=== PATIENT | male | born 1945 | race Caucasian/White ===

== ENCOUNTER → 2023-10-23 13:28 | Outpatient (REF) | payer OTHER, SELFPAY | LOC: HWRAD 13:28 | PROVIDERS: ATTENDING PHYSICIAN Family Medicine | DX: R06.09 Other forms of dyspnea (principal) | CPT/HCPCS: 71046 ==

== ENCOUNTER → 2024-04-17 12:36 | Outpatient (REF) | payer OTHER, SELFPAY | LOC: HWRCS 12:36 | PROVIDERS: ATTENDING PHYSICIAN Internal Medicine; FAMILY PHYSICIAN Family Medicine | DX: I34.0 Nonrheumatic mitral (valve) insufficiency (principal); I50.32 Chronic diastolic (congestive) heart failure; I34.1 Nonrheumatic mitral (valve) prolapse; I36.1 Nonrheumatic tricuspid (valve) insufficiency | CPT/HCPCS: 93306 ==

== ENCOUNTER → 2024-12-13 11:09 | Outpatient (REF) | payer OTHER, SELFPAY | LOC: HWRCS 11:09 | PROVIDERS: ATTENDING PHYSICIAN Internal Medicine; FAMILY PHYSICIAN Family Medicine | DX: I50.32 Chronic diastolic (congestive) heart failure (principal); I34.0 Nonrheumatic mitral (valve) insufficiency; I34.1 Nonrheumatic mitral (valve) prolapse; I36.1 Nonrheumatic tricuspid (valve) insufficiency; I48.19 Other persistent atrial fibrillation | CPT/HCPCS: 93306 ==

== ENCOUNTER 2025-01-16 13:03 | Emergency (ER) | payer OTHER, SELFPAY ==
[2025-01-16 13:14] VITALS: BP 96/65
[2025-01-16 13:40] LABS: % Basophils 0.9 % (0-2); % Eosinophils 4.4 % (0-6); % Immature Granulocytes 0.3 % (0-0.5); % Lymphocytes 3.8 % (20.5-51.1); % Monocytes 7.7 % (1.7-9.3); % Neutrophils 82.9 % (42.2-75.2); Absolute Basophils 0.1 10^3/uL (0-0.2); Absolute Eosinophils 0.3 10^3/uL (0-0.7); Absolute Lymphocytes 0.3 10^3/uL (1.2-3.4); Absolute Monocytes 0.6 10^3/uL (0.1-0.6); Absolute Neutrophils 6.3 10^3/uL (1.4-6.5); Hematocrit 42.6 % (39.0-52.0); Hemoglobin 15.1 g/dL (13.0-18.0); Mean Corp Hgb Conc. 35.4 g/dL (33.0-37.0); Mean Corpuscular Volume 101.7 fL (80.0-94.0); Mean Platelet Volume 12.3 fL (7.4-10.4); Nucleated Red Blood Cells % 0 % (-); Platelet Count 91 10^3/uL (130-400); Red Blood Cell Count 4.19 10^6/uL (4.70-6.10); Red Cell Dist. Width 13.8 % (11.5-14.5); White Blood Cell Count 7.6 10^3/uL (4.8-10.8)
[2025-01-16 13:58] LABS: Troponin I < 0.012 ng/ml
[2025-01-16 14:29] LABS: ALT (SGPT) 29 U/L (0-50); AST (SGOT) 32 U/L (17-59); Albumin 3.9 g/dl (3.5-5.0); Alkaline Phosphatase 94 U/L (38-126); Blood Urea Nitrogen 20 mg/dl (9-20); Calcium 8.7 mg/dl (8.4-10.2); Carbon Dioxide 31 mmol/L (22-30); Chloride 96 mmol/L (98-107); Glucose 150 mg/dl (70-99); Potassium 3.2 mmol/L (3.5-5.1); Sodium 137 mmol/L (135-145); Total Bilirubin 1.9 mg/dl (0.2-1.3); Total Protein 6.1 g/dl (6.3-8.2); eGFR > 60.00
[2025-01-16 15:46] VITALS: BP 144/102
[2025-01-16 15:47] VITALS: BMI 20.4
[2025-01-16 16:00] VITALS: BP 166/148
[2025-01-16] MEDS: TOPROL XL 25 MG PO (16:41)
[2025-01-16 16:43] VITALS: BP 91/76
[2025-01-16 16:45] VITALS: BP 112/88
[2025-01-16] MEDS: KCL 40 MEQ PO (16:46)
--- NOTE | 2025-01-16 16:50 | ED.GENMED ---
History of Present Illness
General
Chief Complaint: Dizziness
Source: patient and spouse
Time Seen by Provider: 01/16/25 15:51
History of Present Illness
History of Present Illness:
79-year-old male presenting to the emergency department at the request of primary care provider after he got up from bed this morning and went downstairs to make a cup of coffee and while drinking his coffee got up from his chair which caused him to
get a little bit lightheaded/dizzy, fell to the ground striking the frontal scalp onto a rug, primary care recommended patient come to the ER due to being on Eliquis and having a head strike. Patient states that at times he does get
lightheaded/dizzy when going from sitting to standing position so he knows to get up relatively slowly. At present time patient is without any concerns including headache, visual changes, focal weakness or numbness, chest pain or shortness of
breath. Spouse does note that patient recently had his Lexapro increased from 5 mg to 7 and half milligrams then 10 mg over the last 2 months and believes this could be playing a role. She also believes that his Lasix is likely causing a little
bit lower blood pressure than usual. Patient notes he did not take his metoprolol this morning as he was sent to the emergency department, notes a history of atrial fibrillation and despite his current mildly tachycardic rate has no symptoms from
this.
Past History
Past History
ED Past Medical History: Arrthythmia, Cancer, HTN, Hypercholesterolemia, Other (Multiple myeloma receiving treatment monthly) and Other (Mitral valve prolapse with mitral regurg)
ED Past Surgical History: Other (Right hernia repair, cataract surgery, retinal tear repair, status post cholecystectomy)
Social History
Tobacco: Non-smoker
Alcohol: None
Drug: None
Personal:
Living: with family
Employment: Employed
Review of Systems
Review of Systems
All Other Systems: ROS reviewed and negative except as documented in HPI and ROS
Phy Exam
Physical Exam
Physical Exam:
GENERAL: Alert , in no apparent distress
HEAD: abrasion right frontal scalp
EYE: clear conjunctiva
NECK: Supple
ENT: o/p clr, mmm.
CARDIAC: Irregularly irregular, tachycardic rate between 105-121bpm
LUNGS: Clear breath sounds bilaterally, no acute respiratory distress
ABDOMEN: Soft, without focal tenderness, no r/g, no cvat
NEUROLOGICAL: Alert and oriented
SKIN: Warm and dry, skin intact.
MUSCULOSKELETAL: No edema, well perfused.
PSYCH: Normal and appropriate interaction.
Scores
Heart Failure Risk
Heart Failure Risk Score: Not Applicable
Heart Score for Chest Pain Patients
STEMI patient?: Not applicable
Withdrawal Assessment of Alcohol
Withdrawal Assessment Completed?: Not applicable
Course
Orders/Labs/Results
Orders:
Orders
01/16/25 13:16
CT Head W/o Iv Contrast Urgent
Comment:
Reason For Exam: fell hit head, on bld thinner
01/16/25 13:18
Electrocardiogram (*1) Urgent
Reason for Study: Vertigo / Dizzy
EKG- Treatment ONCE
01/16/25 13:22
Complete Blood Count/With Diff Urgent
Comprehensive Metabolic Panel Urgent
Troponin I Urgent
01/16/25 15:51
CT Cervical Spine W/o Iv Contr Urgent
Comment:
Reason For Exam: cervical neck tenderness
01/16/25 16:10
Metoprolol Xl [Toprol Xl] 25 mg PO NOW STA
Potassium Chloride [KCl] 40 meq PO NOW STA
Abnormal Lab Results
01/16/25
13:22
RBC 4.19 L 10^6/uL
(4.70-6.10)
MCV 101.7 H fL
(80.0-94.0)
MCH 36.0 H pg
(27.0-31.0)
Plt Count 91 L 10^3/uL
(130-400)
MPV 12.3 H fL
(7.4-10.4)
Absolute Lymphs (auto) 0.3 L 10^3/uL
(1.2-3.4)
Neutrophils % 82.9 H %
(42.2-75.2)
Lymphocytes % 3.8 L %
(20.5-51.1)
Potassium 3.2 L mmol/L
(3.5-5.1)
Chloride 96 L mmol/L
(98-107)
Carbon Dioxide 31 H mmol/L
(22-30)
Glucose 150 H mg/dl
(70-99)
Total Bilirubin 1.9 H mg/dl
(0.2-1.3)
Total Protein 6.1 L g/dl
(6.3-8.2)
01/16/25 13:22
01/16/25 13:22
Vital Signs
Initial and Last Documented VS:
Initial Vital Signs
Temp Pulse Resp BP Pulse Ox
98.3 F 69 18 96/65 96
01/16/25 13:14 01/16/25 13:14 01/16/25 13:14 01/16/25 13:14 01/16/25 13:14
Last Documented Vital Signs
Temp Pulse Resp BP Pulse Ox
98.3 F 95 19 95/59 97
01/16/25 13:14 01/16/25 17:45 01/16/25 17:45 01/16/25 17:00 01/16/25 16:45
MDM/Problems Addressed
Differential Diagnosis Includes:
Orthostasis, polypharmacy, vagal event, electrolyte derangement, dehydration, cardiac arrhythmia
MDM/Problems Addressed:
79-year-old male presenting the emergency department request of his primary care provider due to head strike accidentally falling to the ground during what appears to be an orthostatic episode. Patient otherwise asymptomatic here. Small right
forehead contusion noted. CT of the head and cervical spine ordered. Labs were initiated in triage which show mild hypokalemia which is likely from patient's Lasix use. Will orally replete this. He did not take his metoprolol today and is in a
somewhat tachycardic rate so we will treat with his usual 25 mg p.o. here. Anticipate discharge home with continued outpatient workup. I do suspect there is a degree of polypharmacy especially when it comes to patient's blood pressure.
Chronic conditions affecting care: Arrhythmia
Acute Exacerbation and/or Progression of Chronic Illness: Arrhythmia
*Radiology
Radiology exam reviewed: radiology read reviewed
*Pulse Oximetry
Patient hypoxic: no
*EKG
Heart Rate: 113
Rate: tachycardiac
Rhythm: a-fib
[place]: left axis deviation
Ischemia: no ischemia
*Disaster Response Director Interpretation
Rate: tachycardiac
Rhythm: a-fib
*Critical Care Note
Total Time (30-74mins, 75-104mins- exclusive of procedures): Not Applicable
Data Reviewed
Review of Other/Old Records Reveals: Labs
Patient Management
Escalation/DeEscalation of care consider admission/obs:
Patient continues to feel well and requesting to be discharged home. I advised them that I do not have the cervical spine CT read back yet but they are still requesting to be discharged home. On my review I do not see any cervical spine fractures
however there is a degenerative changes noted. I advised the patient and that if there is anything severely abnormal that will require patient to come back to the hospital but I do have them but otherwise he should follow-up with his primary
care provider.
ED Attending Note
-
Portions of this chart may have been created with voice recognition software.� Occasional wrong word or��sound alike� substitutions may have occurred due to the inherent limitations of voice recognition software.
Discharge Plan
Departure
Patient Disposition: Home (Routine Discharge)
Date of Disposition: 01/16/25
Time of Disposition: 17:55
Patient with high blood pressure during this ER visit?: No
Discharge Problem:
Orthostasis, Atrial fibrillation, Abrasion of forehead
Instructions: Dizziness, Nonvertigo, (DC)
Prescriptions:
No Action
lutein 20 MG capsule
20 mg PO DAILY
ascorbic acid (vitamin C) [Vitamin C] 500 MG tablet
1,000 mg PO DAILY
aspirin 81 MG tablet,delayed release (DR/EC)
81 mg PO DAILY
bisacodyl 5 MG tablet,delayed release (DR/EC)
5 mg PO DAILYPRN PRN (Reason: constipation )
cholecalciferol (vitamin D3) 1,000 UNITS tablet
1,000 units PO DAILY
multivitamin with folic acid [Tab-A-Nic] 1 TABLET tablet
1 tab PO DAILY
polyethylene glycol 3350 17 GRAMS powder in packet
17 grams PO DAILYPRN PRN (Reason: constipation) Qty: 0 0RF
metoprolol succinate 50 MG tablet extended release 24 hr
50 mg PO BID
acyclovir [Zovirax] 400 MG tablet
400 mg PO BID
calcium carbonate 600 MG tablet
1,200 mg PO DAILY
ibuprofen 200 MG tablet
200 mg PO DAILYPRN PRN (Reason: mild pain)
pyridoxine (vitamin B6) 50 MG tablet
50 mg PO DAILY
gabapentin 300 MG capsule
600 mg PO TIDPRN PRN (Reason: numbness)
vitamin B complex [Neurodep] 1 CAP capsule
1 cap PO DAILY
lenalidomide [Revlimid] 25 MG capsule
25 mg PO . HS DIRECTED
Patient Comments:
07/04/2020: Pt takes 14 days on and 7 days off, tonight would be last dose PT'S FAMILY WILL BRING IN FOR PT
denosumab [Xgeva] 120 MG/1.7 ML solution
120 mg SC MONTHLY
selenium 200 MCG capsule
200 mcg PO DAILY
Menaparacasei,B.animalis 1 EACH capsule
1 ea PO DAILY
daratumumab [Darzalex] 100 MG/5 ML solution
100 mg IV . DIRECTED
Patient Comments:
07/04/2020: pt unsure, per ecw from Dr Isaac, pt recieves from Dr Truong
cephalexin 500 MG capsule
500 mg PO QID Qty: 40 0RF
Referrals:
Karlo Isaac MD [Family Provider] -
Interventions
Interventions:
*Risk Screen - Suicide Last Done: 01/16/25 13:14
*General Assessment Last Done: 01/16/25 13:14
*Neglect/Abuse Screening Last Done: 01/16/25 13:14
*ED- Fall Risk Assessment Last Done: 01/16/25 15:48
*ED COVID-19 Vaccine History Last Done: 01/16/25 15:48
*Nursing Disposition Last Done: 01/16/25 18:00
ED-Musculoskeletal Assessment Last Done: 01/16/25 15:50
ED- Neurological Assessment Last Done: 01/16/25 16:03
Discharge Date and Time
Discharge Date/Time: 01/16/25 18:00
Print Language: LATVIAN
[2025-01-16 17:00] VITALS: BP 95/59
== END 2025-01-16 18:00 | disposition home or self-care (01) ==
LOC: EMR 13:03
PROVIDERS: Emergency Medicine; EMERGENCY PHYSICIAN Emergency Medicine; FAMILY PHYSICIAN Family Medicine
DX: S00.81XA Abrasion of other part of head, initial encounter (principal); S00.83XA Contusion of other part of head, initial encounter; W06.XXXA Fall from bed, initial encounter; I10 Essential (primary) hypertension; E78.00 Pure hypercholesterolemia, unspecified; C90.00 Multiple myeloma not having achieved remission; I34.1 Nonrheumatic mitral (valve) prolapse; I48.91 Unspecified atrial fibrillation; Z79.01 Long term (current) use of anticoagulants; Z90.49 Acquired absence of other specified parts of digestive tract
CPT/HCPCS: 99284; 70450; 72125; 80053; 84484; 85025; 93005

== ENCOUNTER → 2025-06-11 12:43 | Outpatient (REF) | payer OTHER, SELFPAY | LOC: HWRCS 12:43 | PROVIDERS: ATTENDING PHYSICIAN Internal Medicine; FAMILY PHYSICIAN Family Medicine | DX: I34.0 Nonrheumatic mitral (valve) insufficiency (principal); I34.1 Nonrheumatic mitral (valve) prolapse; I50.32 Chronic diastolic (congestive) heart failure; I36.1 Nonrheumatic tricuspid (valve) insufficiency | CPT/HCPCS: 93306 ==

== ENCOUNTER 2025-06-17 14:35 | Emergency (ER) | payer OTHER, SELFPAY ==
[2025-06-17 14:36] VITALS: BP 105/86
[2025-06-17 16:48] VITALS: BP 89/71; BMI 18.6
[2025-06-17 17:24] VITALS: BP 112/83
--- NOTE | 2025-06-17 17:28 | ED.GENMED ---
History of Present Illness
General
Chief Complaint: Bowel Problem
Source: patient
Exam Limitations: none
Time Seen by Provider: 06/17/25 16:42
History of Present Illness
History of Present Illness:
79yoM with history of atrial fibrillation, mitral valve prolapse, multiple myeloma in remission, hyperlipidemia presenting with his for evaluation of constipation. Patient typically has a bowel movement every day but has not been defecating
normally recently. He is able to have a very small BM yesterday., Patient started to experience rectal discomfort. He states it felt like he had stool that he was unable to get out. tried to manually disimpact him with success. He has also
tried magnesium citrate. Patient has tried to go to the bathroom several times a day but was becoming weaker and weaker so decided to bring him to the ED. Patient also is now having difficulty urinating. He denies any vomiting, abdominal
pain, rectal bleeding, fevers, chest pain, shortness of breath.
Past History
Past History
ED Past Medical History: Arrthythmia, Cancer, HTN, Hypercholesterolemia, Other (Multiple myeloma receiving treatment monthly) and Other (Mitral valve prolapse with mitral regurg)
ED Past Surgical History: Other (Right hernia repair, cataract surgery, retinal tear repair, status post cholecystectomy)
Social History
Tobacco: Non-smoker
Alcohol: None
Drug: None
Personal:
Living: with family
Employment: Employed
Phy Exam
General Physical Exam
General Presentation: no apparent distress
General Skin: warm and dry
General Habitus: elderly and frail
General Mental: alert
Cardiovascular Exam
Cardiovascular Exam: regular rate/rhythm
Pulmonary Exam
Pulmonary Exam: lungs clear, no respiratory distress, no rales, no crackles, no rhonchi and no wheezing
Gastrointestinal Exam
Gastrointestinal Exam: non tender, soft and non distended
Rectal Exam: other (Enlarged external hemorrhoids noted. Hard stool on digital rectal exam which was disimpacted. No rectal bleeding.)
Neurological Exam
Neurological Exam: alert
Divide Coma Scale
Eye Opening: Spontaneous
Verbal Response: Oriented
Motor Response: Obeys Commands
GCS Total Score: 15
Skin Exam
Skin Exam: normal color and warm/dry
Psychiatric Exam
Psychiatric Exam: normal mood/affect
Course
Orders/Labs/Results
Orders:
Orders
06/17/25 17:38
Complete Blood Count/With Diff Urgent
Comprehensive Metabolic Panel Urgent
06/17/25 18:12
0.9% Sodium Chloride 500 ml [Nss] 500 ml IV BOLUS
Iohexol [Omnipaque] See Protocol PO NOW STA
Abnormal Lab Results
06/17/25
17:38
WBC 16.6 H 10^3/uL
(4.8-10.8)
RBC 4.01 L 10^6/uL
(4.70-6.10)
MCV 107.7 H fL
(80.0-94.0)
MCH 36.4 H pg
(27.0-31.0)
RDW 16.0 H %
(11.5-14.5)
Plt Count 118 L 10^3/uL
(130-400)
MPV 11.7 H fL
(7.4-10.4)
Abs Immat Gran (auto) 0.1 H 10^3/uL
(0-0.05)
Absolute Neuts (auto) 15.4 H 10^3/uL
(1.4-6.5)
Absolute Lymphs (auto) 0.2 L 10^3/uL
(1.2-3.4)
Absolute Monos (auto) 0.9 H 10^3/uL
(0.1-0.6)
Neutrophils % 92.5 H %
(42.2-75.2)
Lymphocytes % 1.3 L %
(20.5-51.1)
BUN 27 H mg/dl
(9-20)
Glucose 180 H mg/dl
(70-99)
Total Bilirubin 1.8 H mg/dl
(0.2-1.3)
06/17/25 17:38
06/17/25 17:38
Vital Signs
Initial and Last Documented VS:
Initial Vital Signs
Temp Pulse Resp BP Pulse Ox
98.2 F 89 18 105/86 99
06/17/25 14:36 06/17/25 14:36 06/17/25 14:36 06/17/25 14:36 06/17/25 14:36
Last Documented Vital Signs
Temp Pulse Resp BP Pulse Ox
97.8 F 89 18 92/66 94
06/17/25 17:43 06/17/25 14:36 06/17/25 14:36 06/17/25 19:17 06/17/25 17:33
MDM/Problems Addressed
Differential Diagnosis Includes:
79yoM here with constipation/fecal impaction. Tried mag citrate and manual disimpaction without relief. He now feels weak after trying to use the bathroom all day. Denies abd pain/vomiting. He is non-toxic appearing on exam. Vitals are stable.
Abdominal exam is benign. Hard stool noted on rectal exam. Differential diagnosis includes but is not limited to: Fecal impaction, constipation, stercoral colitis
Initial ED plan: Manual disimpaction performed at bedside and a large amount of hard stool was removed. Will check CBC, CMP, and reassess.
*Pulse Oximetry
SaO2: 67
Oxygen Mode of Delivery: Room air
Patient hypoxic: no
*Critical Care Note
Total Time (30-74mins, 75-104mins- exclusive of procedures): Not Applicable
Update Note
Update Note:
Labs with leukocytosis with a white count of 16.6 which is new from prior labs. Creatinine 1.0. Electrolytes within normal limits. Given leukocytosis, a workup was ordered including UA, chest x-ray, and CT abdomen. On reassessment, patient and
are refusing imaging at this time stating they do not feel that this is necessary. He has an appointment with his PCP scheduled for tomorrow and states they are unable to remain in the ED any longer. They did agree to receiving IV fluids
and a 500cc NS bolus was given. Attempted to get a urinalysis but patient urinated into the commode with stool. At this point, would like to take the patient home. They understand that we cannot r/o more serious etiologies including
diverticulitis/colitis without imaging. Strict ED return precautions reviewed including fevers and abdominal pain.
ED Attending Note
-
Portions of this chart may have been created with voice recognition software.� Occasional wrong word or��sound alike� substitutions may have occurred due to the inherent limitations of voice recognition software.
Discharge Plan
Departure
Patient Disposition: Home (Routine Discharge)
Date of Disposition: 06/17/25
Time of Disposition: 18:58
Patient with high blood pressure during this ER visit?: No
Discharge Problem:
Fecal impaction, Leukocytosis
Instructions: Fecal Impaction (DC)
Prescriptions:
No Action
lutein 20 MG capsule
20 mg PO DAILY
ascorbic acid (vitamin C) [Vitamin C] 500 MG tablet
1,000 mg PO DAILY
aspirin 81 MG tablet,delayed release (DR/EC)
81 mg PO DAILY
bisacodyl 5 MG tablet,delayed release (DR/EC)
5 mg PO DAILYPRN PRN (Reason: constipation )
cholecalciferol (vitamin D3) 1,000 UNITS tablet
1,000 units PO DAILY
multivitamin with folic acid [Tab-A-Nic] 1 TABLET tablet
1 tab PO DAILY
polyethylene glycol 3350 17 GRAMS powder in packet
17 grams PO DAILYPRN PRN (Reason: constipation) Qty: 0 0RF
metoprolol succinate 50 MG tablet extended release 24 hr
50 mg PO BID
acyclovir [Zovirax] 400 MG tablet
400 mg PO BID
calcium carbonate 600 MG tablet
1,200 mg PO DAILY
ibuprofen 200 MG tablet
200 mg PO DAILYPRN PRN (Reason: mild pain)
pyridoxine (vitamin B6) 50 MG tablet
50 mg PO DAILY
gabapentin 300 MG capsule
600 mg PO TIDPRN PRN (Reason: numbness)
vitamin B complex [Neurodep] 1 CAP capsule
1 cap PO DAILY
lenalidomide [Revlimid] 25 MG capsule
25 mg PO . HS DIRECTED
Patient Comments:
07/04/2020: Pt takes 14 days on and 7 days off, tonight would be last dose PT'S FAMILY WILL BRING IN FOR PT
denosumab [Xgeva] 120 MG/1.7 ML solution
120 mg SC MONTHLY
selenium 200 MCG capsule
200 mcg PO DAILY
L.acidoph,paracasei,B.animalis 1 EACH capsule
1 ea PO DAILY
daratumumab [Darzalex] 100 MG/5 ML solution
100 mg IV . DIRECTED
Patient Comments:
07/04/2020: pt unsure, per ecw from Dr Isaac, pt recieves from Dr rTuong
cephalexin 500 MG capsule
500 mg PO QID Qty: 40 0RF
Referrals:
Karlo Isaac MD [Family Provider, Family Practice]
Activity Restrictions/Additional Instructions:
Take MiraLAX 1-2 times daily as needed for constipation. Increase your fluid and fiber intake.
Please follow with your family doctor tomorrow as previously scheduled.
Return to the ER with any worsening symptoms including fevers or abdominal pain.
Interventions
Interventions:
*Risk Screen - Suicide Last Done: 06/17/25 14:36
*General Assessment Last Done: 06/17/25 14:36
*Neglect/Abuse Screening Last Done: 06/17/25 17:30
*ED- Fall Risk Assessment Last Done: 06/17/25 17:30
*ED COVID-19 Vaccine History Last Done: 06/17/25 17:30
*ED Influenza Vaccine History Last Done: 06/17/25 17:30
*Nursing Disposition Last Done: 06/17/25 19:45
[facility] Assessment Last Done: 06/17/25 17:30
Discharge Date and Time
Discharge Date/Time: 06/17/25 19:46
Print Language: HAITIAN
[2025-06-17 18:03] LABS: ALT (SGPT) 26 U/L (0-50); AST (SGOT) 34 U/L (17-59); Albumin 4.3 g/dl (3.5-5.0); Alkaline Phosphatase 96 U/L (38-126); Blood Urea Nitrogen 27 mg/dl (9-20); Calcium 9.1 mg/dl (8.4-10.2); Carbon Dioxide 25 mmol/L (22-30); Chloride 102 mmol/L (98-107); Estimated Creatinine Clearance 44 ml/min; Glucose 180 mg/dl (70-99); Hematocrit 43.2 % (39.0-52.0); Hemoglobin 14.6 g/dL (13.0-18.0); Mean Corp Hgb Conc. 33.8 g/dL (33.0-37.0); Mean Corpuscular Volume 107.7 fL (80.0-94.0); Nucleated Red Blood Cells % 0 % (-); Platelet Count 118 10^3/uL (130-400); Potassium 5.0 mmol/L (3.5-5.1); Red Cell Dist. Width 16.0 % (11.5-14.5); Sodium 136 mmol/L (135-145); Total Protein 6.3 g/dl (6.3-8.2); eGFR > 60.00
[2025-06-17] MEDS: NSS 500 IV (18:27)
[2025-06-17 19:17] VITALS: BP 92/66
== END 2025-06-17 19:46 | disposition home or self-care (01) ==
LOC: EMR 14:35
PROVIDERS: Physician Assistant; EMERGENCY PHYSICIAN Emergency Medicine; FAMILY PHYSICIAN Family Medicine
DX: K56.41 Fecal impaction (principal); D72.829 Elevated white blood cell count, unspecified; K64.4 Residual hemorrhoidal skin tags; I48.91 Unspecified atrial fibrillation; I10 Essential (primary) hypertension; I34.1 Nonrheumatic mitral (valve) prolapse; I34.0 Nonrheumatic mitral (valve) insufficiency; E78.00 Pure hypercholesterolemia, unspecified; C90.00 Multiple myeloma not having achieved remission
CPT/HCPCS: 99284; 96360; 80053; 85025